=== PATIENT | female | born 1975 ===

== ENCOUNTER 2016-08-24 16:14 | Emergency (ER) | payer MEDICAID ==
[2016-08-24 16:38] VITALS: BP 134/78; PULSE 74; RESP 18; TEMP 98.2; O2SAT 99
--- NOTE | 2016-08-24 17:34 | ED PDOC ---
HPI: Eye Injury/Pain Time Seen by Provider: 08/24/16 16:41 Chief Complaint (Nursing): Eye Problem Chief Complaint (Provider): Eye Problem History Per: Patient History/Exam Limitations: no limitations Onset/Duration Of Symptoms: Days (x1 month) Current Symptoms Are (Timing): Still Present Injury To Eye?: No Severity: Mild Description Of Pain/Injury (Context): Stye Associated Symptoms: Pain. denies: Decreased Vision, Discharge From Eye Additional Complaint(s): Mercedes Bee is a 41 year old female, with no pertinent past medical history, who presents to the emergency department for the evaluation of stye, that the patient has been experiencing for the past month. Patient describes her symptoms as a "small ball" that developed to her left lower lid, evolved, and has been getting progressively larger ever since. Associated discomfort is currently present. Denies discharge or vision changes. PMD: Maria Victoria Perez Past Medical History Reviewed: Historical Data, Nursing Documentation, Vital Signs Vital Signs: Last Vital Signs Temp 98.2 F 08/24/16 16:36 Pulse 74 08/24/16 16:36 Resp 18 08/24/16 16:36 BP 134/78 08/24/16 16:36 Pulse Ox 99 08/24/16 16:36 - Medical History PMH: No Chronic Diseases Denies: Asthma - Surgical History Surgical History: No Surg Hx - Family History Family History: States: No Known Family Hx - Social History Current smoker - smoking cessation education provided: No Ex-Smoker (has not smoked in the last 12 months): No Alcohol: Social Drugs: Denies - Home Medications Home Medications: Ambulatory Orders Medication Instructions Recorded Erythromycin 0.5% [Erythromycin 3.5 gm OP BID #1 tube 08/24/16 0.5% Oint] - Allergies Allergies/Adverse Reactions: Allergies Allergy/AdvReac Type Severity Reaction Status Date / Time No Known Allergies Allergy Verified 08/24/16 16:35 Review of Systems Eyes: Positive for: Pain, Eyelid Inflammation. Negative for: Vision Change, Other (discharge) Physical Exam - Reviewed Nursing Documentation Reviewed: Yes Vital Signs Reviewed: Yes - Physical Exam Appears: Positive for: Non-toxic, No Acute Distress Head Exam: Positive for: ATRAUMATIC, NORMOCEPHALIC Skin: Positive for: Normal Color, Warm Eye Exam: Positive for: Normal appearance, EOMI, PERRL, Periorbital tenderness ( left, lower eyelid) Cardiovascular/Chest: Positive for: Regular Rate, Rhythm. Negative for: Murmur Respiratory: Positive for: Normal Breath Sounds. Negative for: Respiratory Distress Neurologic/Psych: Positive for: Alert, Oriented - ECG O2 Sat by Pulse Oximetry: 99 (RA) Pulse Ox Interpretation: Normal Medical Decision Making Medical Decision Makin:41 Initial Impression: [facility] eye Scribe Attestation: Documented by Errol Kline, acting as a scribe for MALLORY Davis. Provider Scribe Attestation: All medical record entries made by the Scribe were at my direction and personally dictated by me. I have reviewed the chart and agree that the record accurately reflects my personal performance of the history, physical exam, medical decision making, and the department course for this patient. I have also personally directed, reviewed, and agree with the discharge instructions and disposition. Disposition - Clinical Impression Clinical Impression: [facility] - Patient ED Disposition Is Patient to be Admitted: No - Disposition Disposition: Routine/Home Disposition Time: 18:00 Condition: STABLE Prescriptions: Erythromycin 0.5% [Erythromycin 0.5% Oint] 3.5 gm OP BID #1 tube Instructions: Art (ED) Print Language: MOHAWK
--- NOTE | 2016-08-24 18:13 | ED PDOC ---
HPI: Eye Injury/Pain Time Seen by Provider: 08/24/16 16:41 Chief Complaint (Nursing): Eye Problem Chief Complaint (Provider): [facility] History Per: Patient Additional Complaint(s): Pt is a 41 yo female, no PMH, c/o sty to left eye for 1 month. Pt states there was a small pimple to left lower lid, getting progressively large in last few days. pt denies changes in vision or discharge from eye. Past Medical History Reviewed: Nursing Documentation, Vital Signs Vital Signs: Last Vital Signs Temp 98.2 F 08/24/16 16:36 Pulse 74 08/24/16 16:36 Resp 18 08/24/16 16:36 BP 134/78 08/24/16 16:36 Pulse Ox 99 08/24/16 17:43 - Medical History PMH: No Chronic Diseases Denies: Asthma - Surgical History Surgical History: No Surg Hx - Family History Family History: States: No Known Family Hx - Social History Current smoker - smoking cessation education provided: No Ex-Smoker (has not smoked in the last 12 months): No Alcohol: Social Drugs: Denies - Home Medications Home Medications: Ambulatory Orders Medication Instructions Recorded Erythromycin 0.5% [Erythromycin 3.5 gm OP BID #1 tube 08/24/16 0.5% Oint] - Allergies Allergies/Adverse Reactions: Allergies Allergy/AdvReac Type Severity Reaction Status Date / Time No Known Allergies Allergy Verified 08/24/16 16:35 Review of Systems ROS Statement: Except As Marked, All Systems Reviewed And Found Negative Eyes: Positive for: Other ([facility]) Physical Exam - Reviewed Nursing Documentation Reviewed: Yes Vital Signs Reviewed: Yes - Physical Exam Appears: Positive for: Well, Non-toxic, No Acute Distress Head Exam: Positive for: ATRAUMATIC, NORMAL INSPECTION, NORMOCEPHALIC Skin: Positive for: Normal Color, Warm, DRY Eye Exam: Positive for: Normal appearance, EOMI, PERRL, Other ([facility] left lower lid) ENT: Positive for: Normal ENT Inspection Neck: Positive for: Normal, Painless ROM Cardiovascular/Chest: Positive for: Regular Rate, Rhythm Respiratory: Positive for: CNT, Normal Breath Sounds Gastrointestinal/Abdominal: Positive for: Normal Exam, Bowel Sounds, Soft Back: Positive for: Normal Inspection Extremity: Positive for: Normal ROM Neurologic/Psych: Positive for: Alert, Oriented - ECG O2 Sat by Pulse Oximetry: 99 (RA) Medical Decision Making Medical Decision Making: Educated on condition and advised warm compresses and massage to affected area. Use meds as directed. follow up with optho Disposition - Clinical Impression Clinical Impression: [facility] - Patient ED Disposition Is Patient to be Admitted: No - Disposition Disposition: Routine/Home Disposition Time: 18:13 Condition: STABLE Prescriptions: Erythromycin 0.5% [Erythromycin 0.5% Oint] 3.5 gm OP BID #1 tube Instructions: Art (ED) Print Language: TONG[place]
== END 2016-08-24 17:40 | disposition home or self-care (01) ==
LOC: H.ER 16:14
DX: H57.8 Other specified disorders of eye and adnexa (principal); Z87.891 Personal history of nicotine dependence